=== PATIENT | female | born 1965 | race Hispanic/Latino ===

== ENCOUNTER 2018-01-15 10:55 | Day surgery (SDC) | payer BC ==
[~2018-01-15] VITALS: Ht 160 cm; Wt 68.7 kg
[~2018-01-15 10:55] MED LIST: SODIUM CHLORIDE 0.9% 1000ML 1,000 ML IV ONE
[2018-01-15 11:21] VITALS: BP 153/85
[2018-01-15] MEDS ORDERED: MIDAZOLAM HCL 1 MG/ML 2ML VIAL ONE ×2 (12:02→12:28)
[2018-01-15] MEDS ORDERED: MEPERIDINE-PF 50 MG/ML SYG ONE ×2 (12:02→12:28)
[2018-01-15 12:45] VITALS: BP 115/72
[2018-01-15] MEDS ORDERED: SODIUM CHLORIDE 0.9% 1000ML 1,000 ML IV ONE (13:17)
== END 2018-01-15 14:22 | disposition home or self-care (01) ==
LOC: DAH 10:55
PROVIDERS: ATTEND Internal Medicine Gastroenterology
DX: Z12.11 Encounter for screening for malignant neoplasm of colon (principal); E78.4 Other hyperlipidemia; Z98.890 Other specified postprocedural states
CPT/HCPCS: 45378; A4606; J2175 ×2; J2250 ×2; J7030 ×2